=== PATIENT | female | born 1950 | race Caucasian/White ===

== ENCOUNTER → 2020-05-06 | Outpatient (CLI) | payer MEDICARE | LOC: M.RAD 13:46 | PROVIDERS: ATTEND Registered Nurse Diabetes Educator | DX: Z12.31 Encounter for screening mammogram for malignant neoplasm of breast (principal); N60.89 Other benign mammary dysplasias of unspecified breast; R07.9 Chest pain, unspecified ==

== ENCOUNTER → 2020-05-15 | Outpatient (CLI) | payer MEDICARE | LOC: M.LAB 15:38 | PROVIDERS: ATTEND Internal Medicine Gastroenterology | DX: Z01.812 Encounter for preprocedural laboratory examination (principal); R10.9 Unspecified abdominal pain; K62.5 Hemorrhage of anus and rectum; Z11.59 Encounter for screening for other viral diseases; Z85.048 Personal history of other malignant neoplasm of rectum, rectosigmoid junction, and anus ==

== ENCOUNTER → 2020-05-21 | Outpatient (CLI) | payer MEDICARE ==
[~2020-05-21] MED LIST: EFFEXOR XR150 MG PO; FUROSEMIDE 20 M20 MG PO; HORIZANT600 MG PO; HYDROCODONE-AP1 EA11 PO; LEVO-T75 MCG PO; LORCET PLUS 7.1 EACH PO; LOSARTAN POTASS50 MG PO; METFORMIN HCL500 M3 PO; REQUIP 1 MG TABL1 M1 PO; ROBAXIN 750 MG750 MG PO; TOPAMAX 100 MG100 MG PO; TOPAMAX100 MG PO
== END ==
LOC: M.LAB 06:03 → EDSTATUS 15:20
PROVIDERS: ATTEND Anesthesiology
DX: E87.6 Hypokalemia (principal)

== ENCOUNTER → 2020-05-28 | Outpatient (CLI) | payer MEDICARE ==
--- NOTE | 2020-06-10 12:56 | PAINCON ---
[address] [address] PAIN MANAGEMENT CONSULTATION Name: ALLEGRA SHEARER Room: [facility] Deana#: [id number] Admission: 05/28/20 Attend Phys: Abner Boyer MD Discharge: Date of : 54 Report #: [id number] THIS REPORT FOR: //name// cc: Karis Lua Tammy RNP ~ THIS REPORT FOR: //name// CC: Abner Lua BAND SPLITTER DATE OF SERVICE: 05/28/2020 CHIEF COMPLAINT: "I moved here from [place] and would like to become established in a pain clinic." HISTORY: The patient is a 69-year-old female who has been referred to the pain clinic for evaluation. She recently moved from [place] to [place]. She has a history of low back pain. She suffers from lumbar stenosis. She has undergone laminectomy and fusion in 2007. She has continued to have some pain that is radiating down into her legs on both sides. Left side is most problematic. She describes it as a constant, burning, and intermittent numbness feeling. She has been treated with gabapentin, hydrocodone, Robaxin, and Topamax. She feels that her medications provide 60-70% improvement. She rates her pain as a 4/10 today. She has some chronic pain in her left foot. States that she has a screw in the ankle secondary to a bone spur. She has had bilateral L3/L5 medial branch radiofrequency ablations in 08/2017. She has undergone a left lateral femoral cutaneous nerve radiofrequency treatment in 2015. ALLERGIES: No known drug allergies. CURRENT MEDICATIONS: Lasix 20 mg one-half tablet daily, gabapentin 600 mg q. 24 hours b.i.d., hydrocodone 7.5 mg one t.i.d., levothyroxine 75 mcg, potassium/losartan 50 mg, metformin HC 500 mg b.i.d., Robaxin 750 mg, Requip 1 mg, Topamax 100 mg, Effexor XR 150 mg. PAST MEDICAL HISTORY: Colon cancer, uvula carcinoma, low back pain, lumbar stenosis, hypothyroidism, anxiety, depression, diabetes type 2, and lumbar radiculopathy. PAST SURGICAL HISTORY: Tonsillectomy in 1959, hysterectomy in 1980, bone spurs in 2003, cholecystectomy in 1989, and back fusion and laminectomy in 2018. 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 She is not working. She has not worked for 3-4 [place] [address] PAIN MANAGEMENT CONSULTATION Name: ALLEGRA SHEARER Padmini Room: [facility]#: [id number] Admission: 05/28/20 Attend Phys: Abner Boyer MD Discharge: Date of : 54 Report #: [id number] REVIEW OF SYSTEMS: Generally good health, wears glasses, frequent diarrhea, abdominal pain, joint pain, joint stiffness, weakness of muscles and joints, muscle pain, cramping, back pain, difficulty walking, and nervousness. PAIN CLINIC ASSESSMENT/PQRS: 1. History of osteoarthritic changes in her back as well as in the left heel with bone spurs. The patient is not being treated for rheumatoid arthritis. 2. Height 5 feet 4 inches, weight 199 pounds, BMI 34. 3. Vital signs: Blood pressure 135/73, heart rate 72, respiratory rate 16, room air saturation 97%, temperature 98.7. 4. Pain intensity 02/13. 5. Fall history: The patient has not fallen in the last 3 months. 6. Blood thinner. The patient is not on a blood thinning medication. 7. Hypertension. The patient is being treated for hypertension. 8. Opioids greater than 6 weeks. The patient receives medication from her primary. 9. Risk assessment tool, low for opioid use. 10. Functional assessment tool, . 11. Recreational drug use. The patient denies. 12. Tobacco: The patient has smoked off and on for about 50 years. 13. Alcohol: The patient drinks about 2 alcoholic beverages per month. PHYSICAL EXAMINATION: GENERAL: The patient is a well-developed, well-nourished white female. Appears her stated age. She is alert and oriented x 3. Her affect is appropriate. Speech is fluent. HEENT: Normocephalic, atraumatic. Extraocular eye muscles intact. Sclerae nonicteric. Mucous membranes are moist. The patient is wearing a mask. NECK: Without adenopathy or JVD. HEART: Regular. LUNGS: Clear. ABDOMEN: Nontender. MUSCULOSKELETAL: Upper extremity muscle strength judged to be 5-/5 for the major muscle groups in the upper extremity. The patient has some midline muscle soreness with some discomfort in the left rhomboid area. Has paraspinous muscle tenderness. Has lumbar pain and discomfort with pain radiating in the paraspinous muscles near the lumbar L5-S1 area. The patient also has some discomfort radiating down the lateral portion of her buttocks left and right side. The patient has a well-healed scar in the midline of her back. IMPRESSION: 1. Spondylosis of the lumbar region. 2. 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 3. Neuralgia and neuritis. 4. Radiculopathy, lumbar region. [place] [address] PAIN MANAGEMENT CONSULTATION Name: ALLEGRA SHEARER Room: [facility]#: [id number] Admission: 05/28/20 Attend Phys: Abner Boyer MD Discharge: Date of : 54 Report #: [id number] 5. Spondylosis with radiculopathy, lumbar region. 6. Pain in left shoulder. RECOMMENDATIONS: We discussed the use of opioids with the patient. It appears that she has taken the medication as prescribed. We will continue her with her current medical regimen. She will continue with [place] 10/325 one p.o. q.i.d. to help with the pain. She will also continue with Robaxin 750 mg 1 p.o. b.i.d. We discussed the use of opioids with the patient. She is aware that opioid medications can become less effective as time goes on because of development of tolerance. The patient will also continue with the muscle relaxant, methocarbamol 750 mg 1-2 tablets. We will continue with the patient's use of membrane stabilizing medications such as gabapentin. A script for her medications has been provided. She will call us if she has any concerns. We would like to thank you for letting us participate in her care. We hope she continues to improve. <ELECTRONICALLY SIGNED> By: Abner Boyer MD 06/10/20 [id number]. MD JODEE Ramírez
== END ==
LOC: M.PC
PROVIDERS: ATTEND Anesthesiology Pain Medicine
DX: M47.26 Other spondylosis with radiculopathy, lumbar region (principal); M79.2 Neuralgia and neuritis, unspecified; E03.9 Hypothyroidism, unspecified; E11.9 Type 2 diabetes mellitus without complications; Z68.34 Body mass index [BMI] 34.0-34.9, adult; Z90.49 Acquired absence of other specified parts of digestive tract; Z90.710 Acquired absence of both cervix and uterus; Z79.899 Other long term (current) drug therapy; Z85.038 Personal history of other malignant neoplasm of large intestine

== ENCOUNTER → 2020-06-25 | Outpatient (CLI) | payer MEDICARE ==
--- NOTE | 2020-06-26 13:41 | PAINCON ---
[address] [address] PAIN MANAGEMENT CONSULTATION Name: ALLEGRA SHEARER Room: [facility] Deana#: [id number] Admission: 06/25/20 Attend Phys: Abner Boyer MD Discharge: Date of : 54 Report #: [id number] THIS REPORT FOR: //name// cc: Karsi Lua Tammy RNP ~ THIS REPORT FOR: //name// CC: Abner Lua DATE OF SERVICE: 06/25/2020 CHIEF COMPLAINT: Spinal stenosis. HISTORY: The patient is a 69-year-old female, who has returned to [place] from [place]. She continues to have pain and discomfort in her low back and down into her legs. She rates her pain today as 3-4. She does have a history of lumbar spinal stenosis. She has been treated for back pain. She has undergone laminectomy and fusion in 2007. She continues to have pain that radiates down the side of her leg, particularly on the left, which is most problematic. She has some pain and discomfort with sitting. When she sits on her sofa and if she sits for too long, she notes increased pain and discomfort that radiates down the back side of her leg with some pain and discomfort in the calf area. This can be problematic on the left than the right side. She bought a new mattress with hopes that this would be helpful. She is trying to find out her correct "Sleep Number." She has had radiofrequency lesioning of her back in 2017 at L3 through L5. She underwent left femoral cutaneous nerve radiofrequency treatment in 2005. ALLERGIES: No known drug allergies. CURRENT MEDICATIONS: Lasix 20 mg one-half tablet daily, gabapentin 600 mg q. 24 hours b.i.d., oxycodone 7.5 mg 1 p.o. t.i.d., levothyroxine 75 mcg, potassium, losartan 50 mg, metformin HC 500 mg b.i.d., Robaxin 750 mg, Requip 1 mg, Topamax 100 mg, Effexor 150 mg. PAIN CLINIC ASSESSMENT AND PQRS: 1. History of osteoarthritis: The patient has some arthritic changes in her back. She has had left heel spurs. She has had back surgery. She is not being treated for rheumatoid arthritis. She suffered from spinal stenosis. 2. Height 5 feet 4 inches, weight 193 pounds, BMI is 33. 3. Vital signs: Blood pressure 129/78, heart rate 92, respiratory rate 16, room air saturation 96%, temperature is 98.0. 4. Pain intensity: 8/10. 5. Fall history: The patient has not fallen in the last 3 months. 6. Blood thinner: The patient is not on [place] [address] PAIN MANAGEMENT CONSULTATION Name: ALLEGRA SHEARER Room: [facility]#: [id number] Admission: 06/25/20 Attend Phys: Abner Boyer MD Discharge: Date of : 54 Report #: [id number] 7. Hypertension: The patient is being treated for hypertension. 8. Opioids greater than 6 weeks: The patient receives medication from the Pain Clinic. 9. Risk assessment tool: Low for opioid use. 10. Functional assessment tool: . 11. Recreational drug use: The patient denies. 12. Tobacco: The patient has smoked off and on for about 50 years. 13. Alcohol: The patient drinks about 2 alcoholic beverages per month. PHYSICAL EXAMINATION: GENERAL: The patient is a well-developed, well-nourished, white female. She appears her stated age. She is alert and oriented x 3. Her affect is appropriate. Speech is fluent. HEENT: Normocephalic, atraumatic. Extraocular eye muscles intact. Sclerae nonicteric. Mucous membranes are moist. The patient is wearing a mask. NECK: Without adenopathy or JVD. HEART: Regular rate. LUNGS: Generally clear. ABDOMEN: Nontender. NEUROMUSCULOSKELETAL: Upper extremity muscle strength is judged to be 5-/5 for the major muscle groups in the upper extremity. The patient has some pain and discomfort in the lower portion of her back. She has pain radiating down into the left L5-S1 area. She notes an exacerbation of pain and discomfort when she is sitting in the chair or sitting on the sofa. After prolonged sitting, she notes that the pain in the left leg continues to be more problematic and radiates down into the calf area and notes some muscle spasms. She notes some numbness in the left leg. IMPRESSION: 1. Spondylosis of lumbar spine, status post back surgery in 2019 with fusion. 2. Carcinoma in situ, anus and anal canal. 3. Neuralgia and neuritis. 4. Lumbar radicular pain at L5-S1 dermatomal distribution, particularly on the left. 5. Pain, left shoulder. RECOMMENDATIONS: We discussed treatment options with the patient. At this juncture, she continues to have pain, particularly when she is sitting. After sitting for a short period of time, she notes pain that radiates down into her leg. She feels that the pressure from sitting can exacerbate the discomfort. We would recommend that she try a store like [employer]. It is in [place] and may provide some options. We have also talked about the [employer], they have pillows. She might note sitting on this pillow, which would give her more support, might be efficacious. We have also discussed the possibility of getting a head similar to those used in wheelchairs [place] [address] PAIN MANAGEMENT CONSULTATION Name: ALLEGRA SHEARER Room: [facility]#: [id number] Admission: 06/25/20 Attend Phys: Abner Boyer MD Discharge: Date of : 54 Report #: [id number] and paraplegia. She states that she will take those ideas and follow up on them. We will continue with her medications of hydrocodone 7.5 mg 1 p.o. t.i.d. The patient will also continue with methocarbamol as needed. A script for Topamax 100 mg at bedtime will be continued. We would like to thank you for letting us participate in her care. We hope she continues to improve. A script for her medications have been sent to the [facility] on . <ELECTRONICALLY SIGNED> By: Abner Boyer MD 06/26/20 1341 1219 [id number]. Ricardo Boyer MD /nt
== END ==
LOC: M.PC 10:30
PROVIDERS: ATTEND Anesthesiology Pain Medicine
DX: M47.26 Other spondylosis with radiculopathy, lumbar region (principal); M25.512 Pain in left shoulder; Z79.899 Other long term (current) drug therapy

== ENCOUNTER → 2020-07-30 | Outpatient (CLI) | payer MEDICARE ==
--- NOTE | 2020-08-13 09:35 | PAINCON ---
[address] [address] PAIN MANAGEMENT CONSULTATION Name: ALLEGRA SHEARER [id number] Admission: 07/30/20 Attend Phys: Abner Boyer MD Discharge: Date of : 54 Report #: [id number] THIS REPORT FOR: //name// cc: Karis Lua Tammy RNP ~ THIS REPORT FOR: //name// CC: Abner Lua DATE OF SERVICE: 07/30/2020 CHIEF COMPLAINT: Back pain because of spinal stenosis. HISTORY: The patient is a 69-year-old female who has been followed in Pain Clinic because of chronic back pain. She moved to [place] from [place]. She continues to have pain and discomfort, which can be problematic. She rates her pain today as a 2/10. Noticed that because of the cold days that we are experiencing her pain has changed. She has spinal stenosis. She has undergone laminectomy and fusion in 2007. She continues to have pain that radiates down into the side of her legs. Left side is most problematic. The patient has had radiofrequency lesioning of her back in 2017 from L2 through L5. She has also undergone femoral cutaneous nerve radiofrequency treatment in 2005. ALLERGIES: No known drug allergies. CURRENT MEDICATIONS: Lasix 20 mg, gabapentin 600 mg b.i.d., oxycodone 7.5 mg 1 p.o. t.i.d., levothyroxine 75 mcg, potassium, losartan 50 mg, metformin HC 500 mg b.i.d., Robaxin 750 mg, Requip, Topamax 100 mg, and Effexor 150 mg. PAIN CLINIC ASSESSMENT AND PQRS: 1. The patient does have some arthritic changes in her back. She also has some heel spurs on the left. She has had back surgery. She is not being treated for rheumatoid arthritis. She does suffer from spinal stenosis. 2. Height 5 feet 4 inches, weight 198 pounds, BMI is 34. 3. Vital Signs: Blood pressure 131/86, heart rate 79, respiratory rate 16, room air saturation 96%, and temperature 98.2. 4. Pain intensity 01/13. 5. Fall history: The patient has not fallen since we saw her last. 6. Blood thinner. The patient is not on a blood thinning medication. 7. Hypertension. The patient is being treated for hypertension. 8. Opioids greater than 6 weeks. The patient receives medication from the pain clinic. 9. Risk assessment tool, low for opioid use. 10. Functional assessment tool . 11. Recreational [place] [address] PAIN MANAGEMENT CONSULTATION Name: ALLEGRA SHEARER Room: [facility] LUIS DANIEL Deana#: [id number] Admission: 07/30/20 Attend Phys: Abner Boyer MD Discharge: Date of : 54 Report #: [id number] 12. Tobacco: The patient smokes off and on for 50 years. 13. Alcohol: The patient drinks 2 alcoholic beverages per month. PHYSICAL EXAMINATION: GENERAL: The patient is a well-developed, well-nourished white female. Appears her stated age. She is alert and oriented x 3. Her affect is appropriate. Speech is fluent. HEENT: Normocephalic, atraumatic. Extraocular eye muscles intact. The patient is wearing a facial covering. NECK: Without adenopathy. HEART: Regular rate. LUNGS: Clear. ABDOMEN: Nontender. MUSCULOSKELETAL: Upper extremity muscle strength judged to be 5-/5 for the major muscle groups in the upper extremity. The patient does have some pain and discomfort that radiates down the L5-S1 dermatomal distribution. She notes worsening of pain with prolonged sitting in a chair or on the sofa. She does complain of some muscle spasm in lower extremity. Has numbness in the left leg. IMPRESSION: 1. Spondylosis of the lumbar spine, status post back surgery in 2019 with fusion. 2. 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 3. Neuralgia neuritis. 4. Lumbar radicular pain with L5-S1 dermatomal distribution, particularly on the left. 5. Shoulder pain, left side. RECOMMENDATIONS: We discussed treatment options with the patient. At this juncture, we will continue with her current medical management. A script for her medication has been provided. The patient will continue with the hydrocodone 7.5 mg 1 p.o. t.i.d. She will also continue with methocarbamol. She is aware that opioid medications can become less effective as time goes on. She is aware that certain patients can become addicted to the medication and she does not feel that she is having any signs of addiction. A script for her medications have been written. She will continue with hydrocodone 7.5 mg and the Robaxin medication. <ELECTRONICALLY SIGNED> By: Abner Boyer MD 08/13/20 0935 [id number] [id number]. Ricardo Boyer MD /nt
== END ==
LOC: M.PC 10:28
PROVIDERS: ATTEND Anesthesiology Pain Medicine
DX: M47.816 Spondylosis without myelopathy or radiculopathy, lumbar region (principal); D01.3 Carcinoma in situ of anus and anal canal; M54.9 Dorsalgia, unspecified; M25.512 Pain in left shoulder; M79.2 Neuralgia and neuritis, unspecified; F11.20 Opioid dependence, uncomplicated; Z79.899 Other long term (current) drug therapy

== ENCOUNTER → 2020-08-27 | Outpatient (CLI) | payer MEDICARE ==
[~2020-08-27] MED LIST changes: +DUEXIS 800-26.1 EACH PO; +MOBIC15 MG PO
--- NOTE | 2020-09-16 13:58 | PAINCON ---
[address] [address] PAIN MANAGEMENT CONSULTATION Name: ALLEGRA SHEARER [facility] [id number] Admission: 08/27/20 Attend Phys: Abner Boyer MD Discharge: Date of : 54 Report #: [id number] THIS REPORT FOR: //name// cc: Karis Lua Tammy RNP ~ CC: Abner Lua DATE OF SERVICE: 08/27/2020 PRIMARY CARE PHYSICIAN: Karis Lua NP CHIEF COMPLAINT: Low back pain because of spinal stenosis. HISTORY: The patient is a 69-year-old female who has been seen in the pain clinic because of spinal stenosis. She returned from [place]. She has moved back to the [facility]. She feels that her medications continue to be helpful. She has returned today for renewal of her medications. She has suffered from spinal stenosis. She has had a laminectomy and a fusion in 2007. In spite of that, she continues to have pain that radiates down into her legs. Left side is most problematic. She has had radiofrequency lesioning of her back in 2017 from L2 through L5. She has undergone femoral cutaneous nerve radiofrequency treatment in 2005. She has returned today for renewal of her medications. ALLERGIES: No known drug allergies. CURRENT MEDICATIONS: Lasix 20 mg, gabapentin 60 mg b.i.d., oxycodone 7.5 mg 1 p.o. t.i.d., levothyroxine 75 mcg, potassium, losartan 50 mg, metformin HC 500 mg b.i.d., Robaxin 750 mg, Requip, Topamax 100 mg, Effexor 150 mg. PAIN CLINIC ASSESSMENT AND PQRS: 1. The patient does have some arthritic changes in her back. She has some problems with ____ spurs on the left side. She has had surgery on the back. She is not being treated for rheumatoid arthritis. She does suffer from spinal stenosis. 2. Height 5 feet 4 inches, weight 198 pounds, BMI 34. 3. Vital signs: Blood pressure 125/61, heart rate 82, respiratory rate 18, room air saturation 96%, temperature is 98.7. 4. Pain intensity 01/13. 5. Fall history: The patient has not fallen in the last 3 months. 6. Blood thinner. The patient is not on a blood thinning medication. 7. Hypertension. The patient is being treated for hypertension. 8. Opioids greater than 6 weeks. The patient receives medication from the pain clinic. 9. Risk assessment tool, low [place] [address] PAIN MANAGEMENT CONSULTATION Name: ALLEGRA SHEARER Room: [facility]#: [id number] Admission: 08/27/20 Attend Phys: Abner Boyer MD Discharge: Date of : 54 Report #: [id number] 10. Functional assessment tool . 11. Recreational drug use: The patient denies. 12. Tobacco: The patient has smoked off and on for the last 50 years. 13. Alcohol: The patient drinks 2 alcoholic beverages per month. PHYSICAL EXAMINATION: GENERAL: The patient is a well-developed, well-nourished white female. Appears her stated age. She is alert and oriented x 3. Her affect is appropriate. Speech is fluent. HEENT: Normocephalic, atraumatic. Extraocular eye muscles intact. The patient is wearing a facial covering. NECK: Without adenopathy. HEART: Regular rate. LUNGS: Clear. ABDOMEN: Nontender. MUSCULOSKELETAL: Upper extremity muscle strength judged to be 5/5 for the major muscle groups in the upper extremity. The patient has some pain and discomfort in lower portion of her back with pain down the L5-S1 dermatomal distribution. Notes worsening of her pain with prolonged sitting in a chair or sofa. Also, complains of increased pain with prolonged standing or walking. Has some numbness in her left leg. IMPRESSION: 1. Spondylosis of the lumbar spine, status post back surgery in 2019 with fusion. 2. 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 3. Neuralgia and neuritis. 4. Lumbar radicular pain at L5-S1 dermatomal distribution, particularly on the left side. 5. Shoulder pain, left side. RECOMMENDATIONS: We discussed treatment options with the patient. At this juncture, we will continue with her medications. She is aware that medications can be helpful. She is aware that medications can become less effective as time goes on. She has been taking the medication and has had no problems with it. She is able to think clearly. She has not shown any signs of problems with her medications or addictive behavior. We will continue with her medications of hydrocodone 7.5 mg 1 p.o. t.i.d. We will also continue with methocarbamol for help with muscle spasms. The patient will call us if she has any concerns. She will continue with her medications as prescribed. [address] [address] PAIN MANAGEMENT CONSULTATION Name: MANFREDDAVIDSON HUMPHRIESALLEGRA L Room: [facility] D[facility] Grzegorz.#: [id number] Admission: 08/27/20 Attend Phys: Abner Boyer MD Discharge: Date of : 54 Report #: [id number] We would like to thank you for letting us participate in her care. We hope she continues to improve. <ELECTRONICALLY SIGNED> By: Abner Boyer MD 09/16/20 1358 [id number] [id number] Boyer MD /[facility]
== END ==
LOC: M.PC 10:02
PROVIDERS: ATTEND Anesthesiology Pain Medicine
DX: M47.816 Spondylosis without myelopathy or radiculopathy, lumbar region (principal); M48.061 Spinal stenosis, lumbar region without neurogenic claudication; D01.3 Carcinoma in situ of anus and anal canal; M79.10 Myalgia, unspecified site; M25.512 Pain in left shoulder; Z79.899 Other long term (current) drug therapy

== ENCOUNTER → 2020-09-24 | Outpatient (CLI) | payer MEDICARE ==
[~2020-09-24] MED LIST changes: +AMITRIPTYLINE H10 M1 PO; +FLEXERIL PO; +NAPROSYN500 MG PO; +NORCO 5-325 TA1 EAC2 PO
--- NOTE | ~2020-09-24 | PAINCON ---
[facility] [address] [place] [address] PAIN MANAGEMENT CONSULTATION Name: ALLEGRA SHEARER Room: [facility]#: [id number] Admission: 09/24/20 Attend Phys: Abner Boyer MD Discharge: Date of : 54 Report #: [id number] THIS REPORT FOR: //name// cc: Karis Lua Tammy RNP ~ CC: Abner Lua DATE OF SERVICE: 09/24/2020 PRIMARY CARE PHYSICIAN: Karis Lua NP CHIEF COMPLAINT: Low back pain, history of spinal stenosis. HISTORY: The patient is a 69-year-old female who has been followed in the pain clinic because of chronic pain. She suffers from spinal stenosis. She moved back to [place] from [place]. The cooler weather has increased her pain somewhat. She has had surgery and fusion in 2007. She continues to have pain that radiates down into her legs. Prolonged standing is problematic. Walking can be problematic. She has had radiofrequency lesioning of her back in 2016 at L2 through L5. She has also undergone femoral cutaneous nerve treatment with radiofrequency treatment in 2005. She returns today with hopes of renewing her medications. She has been having difficulty sleeping at night. Her legs have been problematic. ALLERGIES: No known drug allergies. CURRENT MEDICATIONS: Lasix 20 mg, gabapentin 60 mg b.i.d., oxycodone 7.5 mg 1 p.o. t.i.d., levothyroxine 75 mcg, potassium, losartan 50 mg, metformin HC 500 mg b.i.d., Robaxin 750 mg, Requip, Topamax 100 mg, Effexor 150 mg. PAIN CLINIC ASSESSMENT AND PQRS: 1. The patient does have some arthritic changes in her back. She has had problems with bone spurs on her left thigh. She has had surgery on her back. She is not being treated for rheumatoid arthritis. She does suffer from spinal stenosis. 2. Height 5 feet 4 inches, weight 204 pounds, BMI is 34. 3. Vital signs: Blood pressure 134/76, heart rate 78, respiratory rate 16, room air saturation 97%, temperature 91.7. 4. Pain intensity /10. 5. Fall history: The patient has not fallen in the last 3 months. 6. Blood thinner. The patient is not on a blood thinning medication. 7. Hypertension. The patient is being treated for hypertension. 8. Opioids greater than 6 weeks. The patient receives medication from the pain clinic. 9. Risk assessment tool, [place] [address] PAIN MANAGEMENT CONSULTATION Name: ALLEGRA SHEARER Room: [facility]#: [id number] Admission: 09/24/20 Attend Phys: Abner Boyer MD Discharge: Date of : 54 Report #: [id number] 10. Functional assessment tool, . 11. Recreational drug use: The patient denies. 12. Tobacco: The patient has smoked on and off for the last 50 years. 13. Alcohol: The patient drinks 2 alcoholic beverages per month. PHYSICAL EXAMINATION: GENERAL: The patient is a well-developed, well-nourished white female. Appears her stated age. She is alert and oriented x 3. Her affect is appropriate. Speech is fluent. HEENT: Normocephalic, atraumatic. Extraocular eye muscles intact. The patient is wearing a facial covering. NECK: Without adenopathy. HEART: Regular rate. LUNGS: Clear. ABDOMEN: Nontender. MUSCULOSKELETAL: Upper extremity muscle strength judged to be 5/5 for the major muscle groups in the upper extremity. The patient has some pain and discomfort in lower portion of her back in the L5-S1 dermatomal distribution. Notes pain is worse with prolonged sitting in a chair or sofa. She also complains of increased pain with prolonged standing and walking. She has numbness in her left leg. IMPRESSION: 1. Spondylosis of the lumbar spine, status post back surgery in 2019 with fusion. 2. 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 3. Neuralgia and neuritis. 4. Lumbar radicular pain at L5-S1 dermatomal distribution, particularly on the left side. 5. Shoulder pain on the left. RECOMMENDATIONS: We discussed treatment options with the patient. Risk and benefits of opioid medications were again reviewed. The patient feels these medications are helpful. We explained that opioid medications can become less effective as time goes on because of ____ of tolerance. The patient states that she has taken the medication as prescribed. She has not shown any signs of addictive behavior. She will continue with her medications of hydrocodone 7.5 mg 1 p.o. t.i.d. The patient will also continue with gabapentin 600 mg b.i.d. She will use methocarbamol to help with muscle spasms. She will call us if she has any concerns. [address] [place] [address] PAIN MANAGEMENT CONSULTATION Name: ALLEGRA SHEARER Room: [facility]#: [id number] Admission: 09/24/20 Attend Phys: Abner Boyer MD Discharge: Date of : 54 Report #: [id number] We would like to thank you for letting us participate in her care. We hope she continues to improve. By: [id number]. Ricardo Boyer MD /DAVID
== END ==
LOC: M.PC 11:15
PROVIDERS: ATTEND Anesthesiology Pain Medicine
DX: M54.5 Low back pain (principal); M48.02 Spinal stenosis, cervical region

== ENCOUNTER 2020-09-28 14:08 | Emergency (ER) | payer MEDICARE ==
[~2020-09-28] VITALS: Ht 162.6 cm; Wt 90.7 kg
[~2020-09-28 14:08] MED LIST changes: -FLEXERIL PO; -NAPROSYN500 MG PO; -NORCO 5-325 TA1 EAC2 PO
[2020-09-28 15:23] LABS: URINE BILIRUBIN NEGATIVE (Negative); URINE BLOOD 1+ (Negative); URINE CLARITY CLEAR; URINE COLOR YELLOW; URINE GLUCOSE-RANDOM NEGATIVE (Negative); URINE KETONES NEGATIVE (Negative); URINE LEUKOCYTES-REFLEX NEGATIVE (Negative); URINE NITRITE-REFLEX NEGATIVE (Negative); URINE PROTEIN NEGATIVE (Negative); URINE UROBILINOGEN 0.2 E.U./dl (0.2-1.0)
[2020-09-28 15:37] LABS: BACTERIA-REFLEX 1-9 Few /HPF (None Seen); CASTS None Seen /LPF (None Seen); CRYSTALS None Seen /LPF (None Seen); SQUAMOUS 0-3 Few /LPF (0-3); URINE RBC 0-2 Rare /HPF (0-2); URINE WBC-REFLEX None Seen /HPF (0-5)
[2020-09-28 15:42] LABS: ABSOLUTE EOSINOPHILS 0.1 thou/uL (0.0-0.7); ABSOLUTE LYMPHOCYTES 1.8 thou/uL (0.8-5.3); ABSOLUTE MONOCYTES 0.4 thou/uL (0.0-1.2); ABSOLUTE NEUTROPHILS 4.3 thou/uL (1.6-8.1); BASOPHILS 0.4 %; EOSINOPHILS 1.6 %; HEMATOCRIT 40.2 % (37.0-47.0); HEMOGLOBIN 13.1 gm/dL (12.0-15.0); LYMPHOCYTES 27.2 %; MCH 28.6 pg (26.0-34.0); MCHC 32.7 g/dL (28.0-37.0); MCV 87.7 fL (80.0-100.0); MONOCYTES 5.5 %; MPV 6.3 fl. (7.2-11.1); NUCLEATED RBCS 0 /100WBC; PLATELET COUNT* 339 thou/uL (150-400); POLYS 65.3 %; RBC 4.59 mil/uL (4.20-5.00); RDW-CV 14.1 % (10.5-14.5); WBC 6.5 thou/uL (4.0-11.0)
[2020-09-28 15:49] LABS: CALCIUM 9.3 mg/dL (8.5-10.1); CREATININE 0.7 mg/dL (0.6-1.3); POTASSIUM 4.2 mmol/L (3.5-5.1)
[2020-09-28 15:54] LABS: TOTAL BILIRUBIN 0.3 mg/dL (<0.1-1.0); TOTAL PROTEIN 7.6 g/dL (6.4-8.2)
[2020-09-28] MEDS ORDERED: NORCO 5-325 TA1 EAC2 PO (16:42)
[2020-09-28] MEDS ORDERED: NAPROSYN500 MG PO (16:42)
[2020-09-28] MEDS ORDERED: FLEXERIL PO (16:42)
[2020-09-28 16:54] VITALS: BP 138/72
--- NOTE | 2020-09-29 15:41 | EKG ---
[place] [address] ELECTROCARDIOGRAM REPORT Name: ALLEGRA SHEARER Room: [facility]#: [id number] Admission: 09/28/20 Attend Phys: Discharge: 09/28/20 Date of : 54 Date of Service: 09/28/20 1553 Report #: [id number] THIS REPORT FOR: //name// [facility] ED Test Date: 2020-09-28 Test Time: 15:53:21 Pat Name: ALLEGRA SHEARER Department: Room: Gender: F Trimmer Climber: [place] : 1950 Requested By: Meera Parkinson Order Number: [id number] MD: Akash Patrick Measurements Intervals [place] Rate: 70 P: -38 VA: 183 QRS: -60 QRSD: 96 T: 45 QT: 381 QTc: 412 Interpretive Statements Sinus rhythm Left anterior fascicular block Abnormal R-wave progression, late transition No previous ECG available for comparison Electronically Signed On 09-29-2020 15:40:58 [employer]PORATE ACCOUNT DIRECTOR by Akash Patrick [email or web address] <ELECTRONICALLY SIGNED> By: Jennifer Patrick MD, FAC 09/29/20 1540 1553 1553 Jennifer Patrick MD, [facility] /EPI
== END 2020-09-28 16:55 | disposition home or self-care (01) ==
LOC: M.ERS 14:08
PROVIDERS: Physician Assistant
DX: M54.9 Dorsalgia, unspecified (principal); R07.81 Pleurodynia; M25.511 Pain in right shoulder; Z20.828 Contact with and (suspected) exposure to other viral communicable diseases; Z85.048 Personal history of other malignant neoplasm of rectum, rectosigmoid junction, and anus; Z85.44 Personal history of malignant neoplasm of other female genital organs; Z90.711 Acquired absence of uterus with remaining cervical stump; Z79.899 Other long term (current) drug therapy

== ENCOUNTER → 2020-10-22 | Outpatient (CLI) | payer MEDICARE ==
[~2020-10-22] MED LIST changes: +FLEXERIL PO; +NAPROSYN500 MG PO; +NORCO 5-325 TA1 EAC2 PO; +REQUIP5 MG PO
== END ==
LOC: M.PC 08:39
PROVIDERS: ATTEND Anesthesiology Pain Medicine
DX: M54.5 Low back pain (principal)

== ENCOUNTER → 2020-11-18 | Outpatient (CLI) | payer MEDICARE | LOC: M.ULTRA 11:24 | PROVIDERS: ATTEND Registered Nurse Diabetes Educator | DX: R22.31 Localized swelling, mass and lump, right upper limb (principal) ==

== ENCOUNTER → 2020-11-26 | Outpatient (CLI) | payer MEDICARE ==
[~2020-11-26] MED LIST changes: +AMITRIPTYLINE H25 M2 PO
== END ==
LOC: M.PC 11-19 10:00
PROVIDERS: ATTEND Anesthesiology Pain Medicine
DX: M47.816 Spondylosis without myelopathy or radiculopathy, lumbar region (principal); G89.29 Other chronic pain; D01.3 Carcinoma in situ of anus and anal canal; M79.2 Neuralgia and neuritis, unspecified; M25.512 Pain in left shoulder; G25.81 Restless legs syndrome; Z79.899 Other long term (current) drug therapy

== ENCOUNTER → 2020-12-11 | Outpatient (CLI) | payer MEDICARE ==
[~2020-12-11] MED LIST changes: +OXYBUTYNIN 5 MG5 M2 PO; +TOPROL XL25 MG PO
[2020-12-11 15:52] LABS: ABSOLUTE EOSINOPHILS 0.1 thou/uL (0.0-0.7); ABSOLUTE LYMPHOCYTES 1.4 thou/uL (0.8-5.3); ABSOLUTE MONOCYTES 0.5 thou/uL (0.0-1.2); BASOPHILS 0.6 %; EOSINOPHILS 1.3 %; HEMATOCRIT 38.3 % (37.0-47.0); HEMOGLOBIN 12.8 gm/dL (12.0-15.0); LYMPHOCYTES 19.9 %; MCH 29.1 pg (26.0-34.0); MCHC 33.3 g/dL (28.0-37.0); MCV 87.3 fL (80.0-100.0); MONOCYTES 6.5 %; MPV 6.5 fl. (7.2-11.1); NUCLEATED RBCS 0 /100WBC; PLATELET COUNT* 340 thou/uL (150-400); POLYS 71.7 %; RBC 4.39 mil/uL (4.20-5.00); RDW-CV 13.4 % (10.5-14.5)
[2020-12-11 15:54] LABS: CREATININE 0.9 mg/dL (0.6-1.3); POTASSIUM 4.1 mmol/L (3.5-5.1)
--- NOTE | 2020-12-11 16:07 | EKG ---
[place] [address] ELECTROCARDIOGRAM REPORT Name: ALLEGRA SHEARER Room: [facility]#: [id number] Admission: 12/11/20 Attend Phys: Dae Brumfield DPM Discharge: Date of : 54 Date of Service: 12/11/20 1527 Report #: [id number] THIS REPORT FOR: //name// [facility] Test Date: 2020-12-11 Test Time: 15:27:23 Pat Name: ALLEGRA SHEARER Department: Room: Gender: F Photo Finish Photographer: : 1950 Requested By: Dae Brumfield Order Number: [id number] Reading MD: José Miguel Merrill Measurements Intervals [place] Rate: 77 P: 67 NM: 182 QRS: -40 QRSD: 93 T: 63 QT: 368 QTc: 417 Interpretive Statements Sinus rhythm Left axis deviation Probable septal infarct, old Compared to ECG 09/28/2020 15:53:21 Myocardial infarct finding now present Electronically Signed On 12-11-2020 16:07:43 TENNIS INSTRUCTOR by José Miguel Merrill [email or web address] <ELECTRONICALLY SIGNED> By: José Miguel Merrill MD, [facility] 12/11/20 1607 1527 1527 José Miguel Merrill MD, [facility] /EPI
== END ==
LOC: M.CRD 15:16
PROVIDERS: ATTEND Podiatrist Foot & Ankle Surgery
DX: Z01.812 Encounter for preprocedural laboratory examination (principal); I49.9 Cardiac arrhythmia, unspecified; I44.4 Left anterior fascicular block

== ENCOUNTER → 2021-03-09 | Outpatient (CLI) | payer MEDICARE | LOC: M.PC 10:32 | PROVIDERS: ATTEND Anesthesiology Pain Medicine | DX: M47.26 Other spondylosis with radiculopathy, lumbar region (principal); D01.3 Carcinoma in situ of anus and anal canal; G89.29 Other chronic pain; M54.5 Low back pain; M79.671 Pain in right foot; M25.512 Pain in left shoulder; Z98.890 Other specified postprocedural states; Z79.84 Long term (current) use of oral hypoglycemic drugs; Z79.899 Other long term (current) drug therapy ==

== ENCOUNTER → 2021-04-06 | Outpatient (CLI) | payer MEDICARE | LOC: M.PC 10:57 | PROVIDERS: ATTEND Anesthesiology Pain Medicine | DX: M47.26 Other spondylosis with radiculopathy, lumbar region (principal); M54.5 Low back pain; M25.561 Pain in right knee; G89.29 Other chronic pain; G25.81 Restless legs syndrome; Z79.899 Other long term (current) drug therapy; Z90.710 Acquired absence of both cervix and uterus; Z79.891 Long term (current) use of opiate analgesic ==

== ENCOUNTER → 2021-05-04 | Outpatient (CLI) | payer MEDICARE | LOC: M.PC 10:39 | PROVIDERS: ATTEND Anesthesiology Pain Medicine | DX: M47.816 Spondylosis without myelopathy or radiculopathy, lumbar region (principal); D01.3 Carcinoma in situ of anus and anal canal; M79.2 Neuralgia and neuritis, unspecified; M25.512 Pain in left shoulder; G25.81 Restless legs syndrome; M25.571 Pain in right ankle and joints of right foot; Z79.891 Long term (current) use of opiate analgesic; Z79.899 Other long term (current) drug therapy ==

== ENCOUNTER → 2021-05-19 | Outpatient (CLI) | payer MEDICARE | LOC: M.RAD 08:36 | PROVIDERS: ATTEND Registered Nurse Diabetes Educator | DX: Z12.31 Encounter for screening mammogram for malignant neoplasm of breast (principal); M54.2 Cervicalgia; M47.814 Spondylosis without myelopathy or radiculopathy, thoracic region; M47.816 Spondylosis without myelopathy or radiculopathy, lumbar region ==

== ENCOUNTER → 2021-06-01 | Outpatient (CLI) | payer MEDICARE | LOC: M.PC 11:00 | PROVIDERS: ATTEND Anesthesiology Pain Medicine | DX: M47.26 Other spondylosis with radiculopathy, lumbar region (principal); M25.512 Pain in left shoulder; G58.8 Other specified mononeuropathies; G25.81 Restless legs syndrome; Z79.899 Other long term (current) drug therapy; Z79.891 Long term (current) use of opiate analgesic ==

== ENCOUNTER → 2021-06-29 | Outpatient (CLI) | payer MEDICARE | LOC: M.PC 10:53 | PROVIDERS: ATTEND Anesthesiology Pain Medicine | DX: M47.26 Other spondylosis with radiculopathy, lumbar region (principal); M25.511 Pain in right shoulder; M79.671 Pain in right foot; M25.512 Pain in left shoulder; G89.29 Other chronic pain ==

== ENCOUNTER → 2021-07-27 | Outpatient (CLI) | payer MEDICARE | LOC: M.PC 09:56 | PROVIDERS: ATTEND Anesthesiology Pain Medicine | DX: M47.26 Other spondylosis with radiculopathy, lumbar region (principal); M25.512 Pain in left shoulder; D01.3 Carcinoma in situ of anus and anal canal; R45.1 Restlessness and agitation ==

== ENCOUNTER → 2021-09-07 | Outpatient (CLI) | payer MEDICARE | LOC: M.PC 09:13 | PROVIDERS: ATTEND Anesthesiology Pain Medicine | DX: G89.29 Other chronic pain (principal); M47.26 Other spondylosis with radiculopathy, lumbar region; M79.671 Pain in right foot; D01.3 Carcinoma in situ of anus and anal canal; G58.8 Other specified mononeuropathies; M25.512 Pain in left shoulder; G25.81 Restless legs syndrome; M25.511 Pain in right shoulder; Z90.710 Acquired absence of both cervix and uterus; Z79.84 Long term (current) use of oral hypoglycemic drugs; Z79.899 Other long term (current) drug therapy ==

== ENCOUNTER → 2021-10-07 | Outpatient (CLI) | payer MEDICARE ==
[2021-10-07 12:34] LABS: ABSOLUTE LYMPHOCYTES 1.6 thou/uL (0.8-5.3); BASOPHILS 0.6 %; HEMATOCRIT 39.3 % (37.0-47.0); MCV 87.8 fL (80.0-100.0); MPV 6.5 fl. (7.2-11.1); NUCLEATED RBCS 0 /100WBC
[2021-10-07 12:36] LABS: ABSOLUTE EOSINOPHILS 0.1 thou/uL (0.0-0.7); ABSOLUTE MONOCYTES 0.4 thou/uL (0.0-1.2); ABSOLUTE NEUTROPHILS 5.4 thou/uL (1.6-8.1); EOSINOPHILS 1.2 %; LYMPHOCYTES 20.9 %; MONOCYTES 5.6 %; PLATELET COUNT* 313 thou/uL (150-400); POLYS 71.7 %; RBC 4.48 mil/uL (4.20-5.00); RDW-CV 13.8 % (10.5-14.5); WBC 7.5 thou/uL (4.0-11.0)
[2021-10-07 12:40] LABS: POTASSIUM 4.1 mmol/L (3.5-5.1)
[2021-10-07 12:59] LABS: ALBUMIN 3.8 g/dL (3.4-5.0); CALCIUM 9.3 mg/dL (8.5-10.1); CREATININE 0.8 mg/dL (0.6-1.3); TOTAL BILIRUBIN 0.4 mg/dL (<0.1-1.0); TOTAL PROTEIN 7.3 g/dL (6.4-8.2)
== END ==
LOC: M.LAB 10:33 → M.PC 10:33
PROVIDERS: ATTEND Anesthesiology Pain Medicine
DX: M47.816 Spondylosis without myelopathy or radiculopathy, lumbar region (principal); M54.50 Low back pain, unspecified; M25.511 Pain in right shoulder; M25.571 Pain in right ankle and joints of right foot; M79.2 Neuralgia and neuritis, unspecified; G25.81 Restless legs syndrome; G89.29 Other chronic pain; K21.9 Gastro-esophageal reflux disease without esophagitis; Z85.048 Personal history of other malignant neoplasm of rectum, rectosigmoid junction, and anus

== ENCOUNTER → 2021-12-16 | Outpatient (CLI) | payer MEDICARE | LOC: M.PC 12:01 | PROVIDERS: ATTEND Anesthesiology Pain Medicine | DX: M47.26 Other spondylosis with radiculopathy, lumbar region (principal); M25.512 Pain in left shoulder; M79.2 Neuralgia and neuritis, unspecified; D01.3 Carcinoma in situ of anus and anal canal; G25.81 Restless legs syndrome; Z79.899 Other long term (current) drug therapy ==